=== PATIENT | female | born 1945 | race American Indian/Alaskan Native ===

== ENCOUNTER 2024-10-26 15:23 | Emergency (ER) | payer OTHER ==
[~2024-10-26] VITALS: Ht 162.6 cm; Wt 63.5 kg
[2024-10-26 17:14] LABS: BASOPHILS ABSOLUTE AUTO 0.03 K/mm3 (0.00-0.23); BASOPHILS PERCENT AUTO 0 % (0-2); EOSINOPHILS ABSOLUTE AUTO 0.11 K/mm3 (0.00-0.68); EOSINOPHILS PERCENT AUTO 1 % (0-6); Hematocrit 41.3 % (33.0-51.0); Hemoglobin 13.3 g/dL (11.5-16.0); IMMATURE GRAN ABSOLUTE AUTO 0.02 K/mm3 (0.00-0.10); IMMATURE GRAN PERCENT AUTO 0 % (0-1); LYMPHOCYTES ABSOLUTE AUTO 0.72 K/mm3 (0.84-5.20); LYMPHOCYTES PERCENT AUTO 9 % (21-46); MONOCYTES ABSOLUTE AUTO 0.49 K/mm3 (0.16-1.47); MONOCYTES PERCENT AUTO 6 % (4-13); Mean Corpuscular HGB 28.3 pg (26.0-34.0); Mean Corpuscular HGB Conc 32.2 g/dL (31.5-36.5); Mean Corpuscular Volume 88 fL (80-100); Mean Platelet Volume 9.8 fL (9.1-12.4); NEUTROPHILS ABSOLUTE AUTO 6.29 K/mm3 (1.96-9.15); NEUTROPHILS PERCENT AUTO 82 % (41-73); Platelet Count 317 K/mm3 (150-400); RDW Coefficient Variation 16.3 % (11.7-14.2); RDW Standard Deviation 52.9 fL (35.1-46.3); White Blood Cell Count 7.66 K/mm3 (4.00-11.30)
[2024-10-26 17:34] LABS: Albumin, Blood 3.3 g/dL (3.4-5.0); Albumin/Globulin Ratio 0.9 (0.8-1.8); Bilirubin, Total 0.4 mg/dL (0.1-1.0); Bun/Creatinine Ratio 26.5 (12.0-20.0); Calcium, Blood 9.2 mg/dL (8.5-10.1); Creatinine, Blood 0.95 mg/dL (0.40-1.00); Globulin, Blood 3.7 g/dL (2.2-4.0); Magnesium, Blood 2.3 mg/dL (1.6-2.4); Phosphorus, Blood 3.3 mg/dL (2.5-4.9); Potassium, Blood 4.4 mmol/L (3.5-5.5)
[2024-10-26 17:57] LABS: Source, Urine Clean Catch
[2024-10-26 18:01] LABS: Appearance, Urine Clear (Clear); Blood, Urine 1+ (Neg); Color, Urine Yellow (P-Yellow); Glucose Qualitative, Urine Neg (Neg); Ketones, Urine Neg (Neg); Leukocyte Esterase, Urine 1+ (Neg); Nitrite, Urine Neg (Neg); Protein, Urine 2+ (Neg); Specific Gravity, Urine 1.025 (1.003-1.022); Urobilinogen, Urine 1+ (Normal)
[2024-10-26 18:02] LABS: Base Excess Venous -0.2 mmol/L; PCO2 Venous 54.2 mmHg (38-42); pH Blood Venous 7.29 (7.34-7.37)
[2024-10-26 18:13] LABS: U Amphetamine Screen Not Detected; U Barbituate Screen Not Detected; U Benzodiazapine Screen Not Detected; U Buprenorphine Screen Not Detected; U Cannabinoids Screen DETECTED; U Cocaine Screen Not Detected; U Methadone Screen Not Detected; U Methamphetamine Screen Not Detected; U Opiates Screen DETECTED; U Oxycodone Screen Not Detected; U Phencyclidine Screen Not Detected
[2024-10-26 18:14] LABS: Bilirubin, Urine 1+ (Neg)
[2024-10-26 18:15] LABS: Bacteria Mod /hpf; Squamous Epithelial Cells Few /hpf (Few)
[2024-10-26 19:02] LABS: Influenza A, PCR NEGATIVE (NEGATIVE); Influenza B, PCR NEGATIVE (NEGATIVE); Resp Syncytial Virus, PCR NEGATIVE (NEGATIVE); SARS-Cov-2 (COVID-19) PCR, MMC NEGATIVE (NEGATIVE)
[2024-10-26] MEDS ORDERED: CefTRIAXone Sodium 1,000 MG in NS 100 ML IV ONE (21:35)
[2024-10-26] MEDS ORDERED: NS 1,000 ML IV SCH (21:35)
[2024-10-26] MEDS ORDERED: Mag Hydrox/AL Hydrox/Simeth 30 ML UDC PO ONE (23:15)
[2024-10-26] MEDS ORDERED: Famotidine 10 MG/ML 2ML Vial IV ONE (23:15)
[2024-10-26] MEDS ORDERED: Lidocaine 2% Viscous Soln 15 ML UDC PO ONE (23:15)
[2024-10-26] MEDS ORDERED: CEFD300 PO (23:16)
== END 2024-10-26 23:59 | disposition home or self-care (01) ==
LOC: ER 15:23
PROVIDERS: Student in an Organized Health Care Education/Training Program
DX: N39.0 Urinary tract infection, site not specified (principal); R53.1 Weakness
CPT/HCPCS: 0241U; 70450; 71045; 74177; 80053; 81001; 82803; 82947; 83690; 83735; 84100; 84484; 85025; 87086; 93005; 93010; 96365; 96375; 99284-25; A9270; J0696; J7030; Q9967

== ENCOUNTER 2024-11-17 16:43 | Emergency (ER) | payer MEDICARE, OTHER ==
[~2024-11-17] VITALS: Ht 157.5 cm; Wt 49.9 kg
[~2024-11-17 16:43] MED LIST: CEFD300 PO
[2024-11-17] MEDS ORDERED: OxyCODONE HCL 5 MG TAB PO ONE (17:55)
[2024-11-17] MEDS ORDERED: HYDROcodone 5-APAP 325 TAB PO ONE (19:30)
== END 2024-11-17 19:45 | disposition home or self-care (01) ==
LOC: ER 16:43
DX: S09.90XA Unspecified injury of head, initial encounter (principal); M54.2 Cervicalgia; Z88.8 Allergy status to other drugs, medicaments and biological substances; Z88.5 Allergy status to narcotic agent; Z79.2 Long term (current) use of antibiotics; W06.XXXA Fall from bed, initial encounter
CPT/HCPCS: 70450; 72125; 99284-25; A9270

== ENCOUNTER 2024-12-02 15:35 | Emergency (ER) | payer MEDICARE, OTHER ==
[~2024-12-02] VITALS: Ht 157.5 cm; Wt 45.4 kg
[2024-12-02 16:13] LABS: BASOPHILS ABSOLUTE AUTO 0.03 K/mm3 (0.00-0.23); BASOPHILS PERCENT AUTO 0 % (0-2); EOSINOPHILS PERCENT AUTO 0 % (0-6); Hemoglobin 12.6 g/dL (11.5-16.0); IMMATURE GRAN ABSOLUTE AUTO 0.02 K/mm3 (0.00-0.10); IMMATURE GRAN PERCENT AUTO 0 % (0-1); LYMPHOCYTES ABSOLUTE AUTO 0.37 K/mm3 (0.84-5.20); LYMPHOCYTES PERCENT AUTO 4 % (21-46); MONOCYTES ABSOLUTE AUTO 0.39 K/mm3 (0.16-1.47); MONOCYTES PERCENT AUTO 4 % (4-13); Mean Corpuscular HGB 28.6 pg (26.0-34.0); Mean Corpuscular HGB Conc 32.3 g/dL (31.5-36.5); Mean Corpuscular Volume 89 fL (80-100); Mean Platelet Volume 9.3 fL (9.1-12.4); NEUTROPHILS ABSOLUTE AUTO 8.73 K/mm3 (1.96-9.15); NEUTROPHILS PERCENT AUTO 92 % (41-73); Platelet Count 328 K/mm3 (150-400); RDW Standard Deviation 52.1 fL (35.1-46.3); White Blood Cell Count 9.54 K/mm3 (4.00-11.30)
[2024-12-02 16:35] LABS: Albumin, Blood 3.1 g/dL (3.4-5.0); Bilirubin, Total 0.6 mg/dL (0.1-1.0); Bun/Creatinine Ratio 21.5 (12.0-20.0); Calcium, Blood 8.7 mg/dL (8.5-10.1); Creatinine, Blood 0.74 mg/dL (0.40-1.00); Globulin, Blood 3.1 g/dL (2.2-4.0); Potassium, Blood 4.2 mmol/L (3.5-5.5); Total Protein, Blood 6.2 g/dL (6.4-8.2)
== END 2024-12-02 18:33 | disposition home or self-care (01) ==
LOC: ER 15:35
PROVIDERS: Student in an Organized Health Care Education/Training Program
DX: S09.90XA Unspecified injury of head, initial encounter (principal); W19.XXXA Unspecified fall, initial encounter
CPT/HCPCS: 70450; 80053; 82550; 85025; 99284-25